=== PATIENT | male | born 1975 | race Caucasian/White ===

== ENCOUNTER 2019-01-05 14:48 | Emergency (ER) | payer OTHER ==
[~2019-01-05] VITALS: Ht 177.8 cm; Wt 66.7 kg
[2019-01-05] MEDS ORDERED: BAYER (15:26)
[2019-01-05] MEDS ORDERED: ADVIL (15:26)
== END 2019-01-05 17:26 | disposition home or self-care (01) ==
LOC: ER 14:48
DX: L02.31 Cutaneous abscess of buttock (principal)